=== PATIENT | male | born 1955 | race Caucasian/White ===

== ENCOUNTER 2020-12-05 11:57 | Inpatient (IN) | payer SELFPAY ==
[2020-12-05] VITALS (16 sets, daily range): BP systolic 41–150; BP diastolic 14–95; PULSE 47–144; RESP 12–18; TEMP 36.1–37; O2SAT 77–98; BMI 24.3; BMI 25.6; BMI 24.8
--- NOTE | 2020-12-05 | RAD_ITS ---
STUDY: X-RAY CHEST REASON FOR EXAM: Male, 65 years old. Central Line placement TECHNIQUE: Single AP portable view of the chest. COMPARISON: Comparison is made with prior study dated 12/05/2020 at 10:19 PM. FINDINGS: A right-sided central catheter has been placed with the tip at the junction of the superior vena cava and right atrium. EKG electrodes are seen. Persistent left lower lobe infiltration and blunting of the left costophrenic angle. Mild increased markings in the right infrahilar region. There is no demonstrated pleural abnormality. Normal size heart. Normal mediastinum and rios. Normal visualized pulmonary arteries. There is atherosclerotic tortuosity of the aortic arch and descending thoracic aorta. Normal visualized thoracic spine. Normal visualized ribs, clavicles, and shoulders. There is no demonstrated abnormality of the visualized soft tissue structures of the upper abdomen. RAD/Chest 1 View (Portable) IMPRESSION: The tip of the right central venous catheter is at the junction of the superior vena cava and right atrium. Electronically Signed: Dickson Cotton MD at 8:31 EDT , Service support ,
--- NOTE | 2020-12-05 12:19 | EKG12_ITS ---
Test Reason : Blood Pressure : / mmHG Vent. Rate : 048 BPM Atrial Rate : 394 BPM P-R Int : 000 ms QRS Dur : 082 ms QT Int : 466 ms P-R-T Axes : 000 -11 127 degrees QTc Int : 416 ms Sinus Vs Ectopic Atrial Bradycardia Low voltage QRS Septal infarct , age undetermined Inferior infarct , age undetermined T wave abnormality, consider lateral ischemia Abnormal ECG Confirmed by ORLANDO العلي, JANAK ([id number]), editorial specialist LETICIA KING ([id number]) on 12/06/2020 1:08:49 PM Referred By: HEIDI Confirmed By:JANAK PERRY MD
--- NOTE | 2020-12-05 12:38 | CT_ITS ---
STUDY: CT BRAIN WITHOUT CONTRAST REASON FOR EXAM: Male, 65 years old. Leg weakness RADIATION DOSAGE (If Supplied By Facility): CTDIvol = ( 44.99 ) mGy, DLP = ( 812.98 ) mGycm TECHNIQUE: Transaxial CT imaging of the brain was performed without administration of intravenous contrast material. Individualized dose optimization techniques were used for this CT. COMPARISON: No relevant priors. FINDINGS: Normal soft tissue structures. Normal calvarium. There is mild cerebral atrophy with widening of the extra-axial spaces and ventricular dilatation. There are areas of decreased attenuation within the white matter tracts of the supratentorial brain, consistent with microvascular disease changes. There are small punctate calcifications of the basal ganglia which are seen in the aging brain as a normal variant. Normal brainstem. Normal cerebellum. There is no intracranial hemorrhage. There are no findings of an acute ischemic infarction. Normal visualized paranasal sinuses. CT/Brain/Head without Contrast IMPRESSION: Chronic involutional changes of the brain. Electronically Signed: Dickson Cotton MD at 13:00 EDT , Service support ,
--- NOTE | 2020-12-05 12:42 | EX.ED.DYSGE1 ---
HPI History of Present Illness Chief Complaint: Neuro S/Sx Informant: patient and spouse/S.O. Onset/Context/Timing Onset: Today Current Severity: Moderate Maximum Severity: Moderate Narrative Narrative: Patient complains of bilateral leg numbness that started around 1020 this morning. Patient states that he was laying in bed looking at the clock. He got a unusual pain to the left posterior parietal scalp area and then felt as if both of his legs were numb and tingly. He reports some very mild low back pain that is chronic and unchanged from baseline. He denies abdominal pain. Nursing staff states that his legs did seem weak when they were try to transfer him into the bed. He initially states normally he is able to walk around without difficulty. He denies medical problems, but does admit he has not been to the doctor in several years. He later states that he does have some chronic balance problems and some hearing loss in his left ear. He does report some blind spots in his vision that is chronic and unchanged. PFSH PFSH no medical history Home Medications NK 12/05/20 [History Last Taken Unknown] Allergy/AdvReac Type Severity Reaction Status Date / Time No Known Allergies Allergy Verified 12/05/20 12:03 Social History Smoking Status: Never smoker ROS ROS ED Constitutional Constitutional ED: Denies chills or fever(s) Eyes Eyes: Denies change in vision ENT ENT ED: Denies sore throat Cardiovascular Cardiovascular: Denies chest pain Respiratory/Chest Respiratory/Chest: Denies cough or dyspnea Gastrointestinal Gastrointestinal: Denies abdominal pain, diarrhea, nausea or vomiting Genitourinary Genitourinary ED: Denies dysuria Musculoskeletal Musculoskeletal: Reports back pain Integumentary Denies rash Neurologic Neurologic: Reports paresthesias RLE and LLE and weakness; Denies headache(s) Psychiatric Psychiatric: Denies anxiety or depression Endocrine Endocrinology: Denies polydipsia or polyuria Allergic/Immunologic Allergic/Immunologic ED: Denies urticaria EXAM Physical Exam Const Vital Signs: 12/05/20 11:59 12/05/20 12:20 12/05/20 12:35 Temperature 97.7 F L Temperature Source Temporal Pulse Rate 62 Respiratory Rate 16 Blood Pressure 98/70 Blood Pressure Mean 79 Pulse Ox 98 95 Oxygen Delivery Method Nasal Cannula Room Air Oxygen Flow Rate (L/min) 4 Positive well nourished and well developed General Appearance ED: well developed HEENT Reports moist mucous membranes Eyes PERRL and EOMs intact bilaterally Neck supple Chest Wall inspection of chest normal and palpation of chest normal Resp normal respiratory effort and clear to auscultation bilaterally Cardio regular rhythm Rate: bradycardia GI normal to inspection, nondistended, normoactive bowel sounds and non-tender Palpation: soft Extremity Extremity Narrative: Patient reports decrease sensation to light touch in the lower extremities, but can feel me touching his legs when checked for pulses. Legs are cool to the touch but not mottled. He has palpable but weak distal pulses. No calf or thigh tenderness. Neuro oriented x3 Sensorium / Orientation: alert Skin no rashes or lesions noted MDM MDM MDM Narrative Medical decision making narrative: Lab work, EKG, head CT obtained. Lab Data Labs: Laboratory Results - last 24 hr 12/05/20 12/05/20 12/05/20 12:38 12:41 12:41 WBC 5.9 RBC 3.28 L Hgb 11.3 L Hct 34.1 L MCV 104.0 H MCH 34.5 H MCHC 33.1 RDW Std Deviation 52.5 H RDW Coeff of Quynh 13.7 Plt Count 216 MPV 10.6 Immature Gran % (Auto) 2.700 H Neut % (Auto) 68.1 Lymph % (Auto) 16.6 L Charlton % (Auto) 6.6 Eos % (Auto) 4.6 Baso % (Auto) 1.4 H Absolute Neuts (auto) 4.0 Absolute Lymphs (auto) 0.98 Nucleated RBC % 0 PT INR APTT Sodium 137 Potassium 3.9 Chloride 105 Carbon Dioxide 26.0 Anion Gap 6 BUN 30 H Creatinine 1.16 Estim Creat Clear Calc 67.30 Est GFR (MDRD) Af Amer 82 Est GFR (MDRD) Non-Af 68 BUN/Creatinine Ratio 25.9 H Glucose 120 H Calcium 8.8 Total Bilirubin 0.50 AST 35 ALT 24 Alkaline Phosphatase 65 Troponin I High Sens 24 Total Protein 6.4 Albumin 3.3 Globulin 3.1 Albumin/Globulin Ratio 1.1 POC Glucose 124 H 12/05/20 12:41 WBC RBC Hgb Hct MCV MCH MCHC RDW Std Deviation RDW Coeff of Quynh Plt Count MPV Immature Gran % (Auto) Neut % (Auto) Lymph % (Auto) Charlton % (Auto) Eos % (Auto) Baso % (Auto) Absolute Neuts (auto) Absolute Lymphs (auto) Nucleated RBC % PT 12.3 INR 1.0 APTT 30.4 Sodium Potassium Chloride Carbon Dioxide Anion Gap BUN Creatinine Estim Creat Clear Calc Est GFR (MDRD) Af Amer Est GFR (MDRD) Non-Af BUN/Creatinine Ratio Glucose Calcium Total Bilirubin AST ALT Alkaline Phosphatase Troponin I High Sens Total Protein Albumin Globulin Albumin/Globulin Ratio POC Glucose Radiography Chest X-Ray - ED: 1 View, Read by ED Physician and Chronic Changes Diagnostic Testing: Radiology Impression Brain CT 12/05/20 12:38 IMPRESSION: Chronic involutional changes of the brain. Electronically Signed: Dickson Cotton MD at 13:00 EDT , Service support , Chest X-Ray 12/05/20 12:50 IMPRESSION: Hyperinflation. Questionable 1.7 cm faint nodule in the right midlung. Electronically Signed: Dickson Cotton MD at 13:02 EDT , Service support , EKG Initial EKG: Attestation: I personally reviewed and interpreted this EKG as follows: Interpretation: Sinus Bradycardia (Sinus bradycardia at [address] change.) Treatment and Re-Evaluation Comments:: On review of EMS record, patient was initially hypotensive at 80/52 on their arrival. Heart rate was in the 50s. Initially his O2 sat was 88% on room air. Patient has been stable on room air throughout his ED stay. Heart rate has remained bradycardic in the 30s to 50s. He does not know if this is normal for him. Blood pressure has been stable between 100-130s systolic. On repeat evaluation patient states he continues to have weird feelings in his legs. He states when he pinches his thighs he can feel it but it does not feel normal. When I examine his legs he does have sensation over the right leg and proximal three quarters of the left leg. He has difficulty feeling sensation when I touch his ankle on the left. Patient is able to lift his legs off the bed but they are we can do fall back to the bed. At this time I do feel he will need further work-up including possible MRI of his back. I will speak with hospitalist. Discharge Plan Dx/Rx/DC Orders Clinical Impression: Paresthesias, Bilateral leg weakness Disposition Disposition: Acute Care [facility]
[2020-12-05 12:50] LABS: Bedside Glucose 124 mg/dL (70-110)
--- NOTE | 2020-12-05 12:50 | RAD_ITS ---
STUDY: X-RAY CHEST REASON FOR EXAM: Male, 65 years old. Stroke TECHNIQUE: Single AP portable view of the chest. COMPARISON: None. FINDINGS: EKG electrodes are seen. Hyperinflation. Mild elevation of the right hemidiaphragm. Questionable faint 1.7 cm nodule in the right midlung. There is no demonstrated pleural abnormality. There is borderline cardiomegaly. Normal mediastinum and rios. Normal visualized pulmonary arteries. There is atherosclerotic tortuosity of the aortic arch and descending thoracic aorta. Normal visualized thoracic spine. Normal visualized ribs, clavicles, and shoulders. There is no demonstrated abnormality of the visualized soft tissue structures of the upper abdomen. RAD/Chest 1 View (Portable) IMPRESSION: Hyperinflation. Questionable 1.7 cm faint nodule in the right midlung. Electronically Signed: Dickson Cotton MD at 13:02 EDT , Service support ,
[2020-12-05 12:53] LABS: Absolute Lymphocyte Count 0.98 X10^3/uL (0.83-4.51); Basophil# 0.08 X10^3/uL; Basophil% 1.4 % (0-1); Eosinophil# 0.27 X10^3/uL; Eosinophils% 4.6 % (0-5); Hematocrit 34.1 % (40-54); Hemoglobin 11.3 g/dL (13.0-16.5); Lymphocyte # 0.98 X10^3/ul (0.83-4.51); Lymphocyte % 16.6 % (19-41); Mean Corp Hgb Conc 33.1 g/dL (32-36); Mean Corpuscular Hgb 34.5 pg (27.0-32.0); Mean Platelet Vol. 10.6 fl (6.2-12.0); Monocyte# 0.39 X10^3/uL; Monocyte% 6.6 % (0-10); NRBC Flagged by Analyzer 0 % (0-5); Neutrophil # 4.03 X10^3/uL (2.7-7.7); Neutrophil % 68.1 % (47-70); Platelet Count 216 K/mm3 (150-450); RBC Distribution Width CV 13.7 % (11.6-14.6); RBC Distribution Width SD 52.5 fl (35.1-43.9); Red Blood Count 3.28 M/mm3 (4.6-6.2); White Blood Count 5.9 K/mm3 (4.4-11.0)
[2020-12-05 13:03] LABS: Partial Thromboplast Time 30.4 Seconds (24.1-36.2); Prothrombin Time (Protime)PT. 12.3 SECONDS (11.7-14.9)
[2020-12-05 13:17] LABS: ALB/GLOB Ratio 1.1 RATIO (0.9-2.4); AST(SGOT) 35 U/L (15-37); Alanine Aminotransfer ALT/SGPT 24 U/L (16-61); Albumin, Serum 3.3 g/dL (3.2-5.0); Alkaline Phosphatase 65 U/L (45-117); Anion Gap 6 (5-15); BUN 30 mg/dL (7-18); BUN/Creat Ratio 25.9 RATIO (10-20); Calcium,Total 8.8 mg/dL (8.5-10.1); Chloride 105 mmol/L (98-107); Creatinine, Serum 1.16 mg/dL (0.70-1.30); EST Glomerular Filtration Rate 68 mL/min (>60); Est Glom Filt Rate - Afr Amer 82 mL/min (>60); Globulin 3.1 g/dL (2.2-4.2); Glucose 120 mg/dL (74-106); Potassium 3.9 mmol/L (3.5-5.1); Protein, Total 6.4 g/dL (6.4-8.2); Sodium Level 137 mmol/L (136-145); Troponin-I HS 24 pg/mL (3.0-78.0)
[2020-12-05] MEDS: fentaNYL 100 MCG/2 ML Ampul 25 MCG IV (14:50)
[2020-12-05] MEDS: 0.9% Normal Saline 1,000 ML 50 ML IV (14:54)
--- NOTE | 2020-12-05 18:09 | MRI_ITS ---
STUDY: MRI LUMBAR SPINE WITH AND WITHOUT CONTRAST REASON FOR EXAM: Male, 65 years old. biLateral lower extremity weakness TECHNIQUE: Standardized fat and water weighted pulse sequences were obtained in the sagittal and axial planes. dotarem 15ml iv was administered for the contrast portion of the examination. COMPARISON: None FINDINGS: Lumbar lordosis maintained. No significant scoliosis. Conus medullaris terminates normally at the L1 level. No acute fracture, dislocation or cortical destruction. No abnormal/unexpected contrast enhancement. Normal retroperitoneum. Normal aorta. Normal paraspinal muscles. Sacrum intact. T11-12: Disc bulge with left femoral extension (sagittal image 5 series 3). Left neural foraminal narrowing with contact of the left exiting nerve root. T12-L1: Normal endplates. Normal disc height, hydration and morphology. Normal bilateral facet joints. Normal central canal and bilateral lateral recesses. Normal bilateral intervertebral neural foramina. L1-2: Normal endplates. Mild disc desiccation. Normal bilateral facet joints. Normal central canal and bilateral lateral recesses. Normal bilateral intervertebral neural foramina. L2-3: Normal endplates. Disc bulge, slightly asymmetric to the left, without central canal narrowing. Facet joint arthrosis. Normal central canal and bilateral lateral recesses. Mild left neural foraminal narrowing without impingement. L3-4: Normal endplates. Shallow disc bulge. Facet joint arthrosis. Normal central canal and bilateral lateral recesses. Neural foraminal narrowing without impingement. L4-5: Normal endplates. Disc bulge, annular fissure, without central canal narrowing. Facet joint arthrosis. Normal central canal and bilateral lateral recesses. Neural foraminal narrowing without impingement. L5-S1: Mild endplate spondylosis. Shallow disc bulge with mild left extraforaminal extension. Facet joint arthrosis. Normal central canal and bilateral lateral recesses. Neural foraminal narrowing with minimal contact of the left exiting nerve root. 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
--- NOTE | 2020-12-05 18:09 | MRI_ITS ---
STUDY: MRI BRAIN WITH AND WITHOUT CONTRAST REASON FOR EXAM: Male, 65 years old. Bilateral lower extremity weakness and numbness TECHNIQUE: Standardized multiplanar fat and water weighted pulse sequences were obtained. IV DOTAREM 15ML was administered for the contrast portion of the examination. COMPARISON: CT of the brain 12/05/2020 FINDINGS: Mild atrophy and periventricular white matter ischemic change without mass effect or restricted diffusion. Normal bilateral basal ganglia. Normal thalami. There is no extra-axial fluid accumulation. Normal flow voids within the major intracranial circulation suggesting patency by spin echo criteria. Normal venous enhancement. There is no enhancing intra-axial or extra-axial abnormality. Normal sella turcica, pituitary gland, infundibular stalk, optic chiasm and hypothalamus. Normal tectal plate and pineal gland. Normal midbrain, ben and medulla. Normal cerebellum. Normal basal cisterns. Normal bilateral temporal bones. Normal bilateral internal auditory canals. Diffusely increased signal within the mastoid air cells consistent with inflammatory changes. No demonstrated orbital abnormality, within the constraints of a routine brain study. Normal visualized paranasal sinuses. Normal calvarium and skull base. Normal visualized soft tissue structures. Normal visualized upper cervical spine. MRI/Brain W/WO Contrast IMPRESSION: Mild atrophy and periventricular white matter ischemic change without evidence for acute infarct. No enhancing lesions following contrast administration Electronically Signed: Brendan Luna MD at 22:30 EDT , Service support ,
[2020-12-05] MEDS: HYDROmorphone 1 MG/ML Syringe IV (18:33)
[2020-12-05] MEDS: 0.9% Saline Lock 10 ML Syringe IV (18:33)
--- NOTE | 2020-12-05 20:21 | PCM.HP.STD ---
HPI - General General Date of Admission: 12/05/20 HPI Narrative DARYA BALTAZAR, is a 65 M who presents sudden onset of headache and then bilateral lower extremity weakness and numbness/tingling. Denies any weakness in his upper extremities. Denies any dysarthria, dysphagia, dysphagia, diplopia, neck stiffness, back pain, bladder or bowel incontinence. Denies any fever or chills. Head CT done was negative. Left lower extremity is worse and patient is having sciatic-like pain in that lower extremity as well. [facility] Home Medications NK 12/05/20 [History Last Taken Unknown] Allergy/AdvReac Type Severity Reaction Status Date / Time No Known Allergies Allergy Verified 12/05/20 12:03 Social History Smoking Status: Never smoker ROS ROS Narrative Denies any chest pain or shortness of breath. All other systems reviewed and essentially negative. Vital Signs Vital Signs Vital Signs: 12/05/20 11:59 12/05/20 12:20 12/05/20 12:35 Temperature 36.5 C L Temperature Source Temporal Pulse Rate 62 Respiratory Rate 16 Blood Pressure 98/70 Blood Pressure Mean 79 Blood Pressure Source Blood Pressure Position Blood Pressure Location Pulse Ox 98 95 Oxygen Delivery Method Nasal Cannula Room Air Oxygen Flow Rate (L/min) 4 12/05/20 13:30 12/05/20 14:00 12/05/20 14:30 Temperature Temperature Source Pulse Rate 47 L 48 L 50 L Respiratory Rate 13 13 17 Blood Pressure 107/72 100/62 110/80 Blood Pressure Mean 83 74 90 Blood Pressure Source Blood Pressure Position Blood Pressure Location Pulse Ox 95 95 96 Oxygen Delivery Method Room Air Room Air Room Air Oxygen Flow Rate (L/min) 12/05/20 15:00 12/05/20 15:55 12/05/20 16:46 Temperature 37.0 C 36.7 C Temperature Source Temporal Oral Pulse Rate 50 L 61 58 L Respiratory Rate 17 18 12 Blood Pressure 112/75 124/84 H 132/95 H Blood Pressure Mean 87 97 107 Blood Pressure Source Monitor Blood Pressure Position Semi-Fowlers Blood Pressure Location Right Arm Pulse Ox 97 94 96 Oxygen Delivery Method Room Air Room Air Room Air Oxygen Flow Rate (L/min) Weight Weight: 78.6 kg Body Mass Index (BMI) 24.8 Physical Exam Narrative General. Middle-aged man, ill looking, chronically ill-appearing, Skin. Patient appears yellow. HEENT. Edentulous, oral mucosa moist, swelling of lips and lower eyelids. Neck. Supple. Heart. First and second heart sounds heard. No murmurs. Lungs. Clear to auscultation. Abdomen. Obese. Moves with respiration. No organomegaly or palpable masses. Extremities. Mild polypitting edema in both lower extremities. 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 Gross sensation is diminished in both lower extremities and appears to be patchy. Results Lab / Micro Data Result Diagrams: 12/05/20 12:41 12/05/20 12:41 Labs: Laboratory Results - last 24 hr 12/05/20 12:38: POC Glucose 124 H 12/05/20 12:41: WBC 5.9, RBC 3.28 L, Hgb 11.3 L, Hct 34.1 L, MCV 104.0 H, MCH 34.5 H, MCHC 33.1, RDW Std Deviation 52.5 H, RDW Coeff of Quynh 13.7, Plt Count 216, MPV 10.6, Immature Gran % (Auto) 2.700 H, Neut % (Auto) 68.1, Lymph % (Auto) 16.6 L, [place] % (Auto) 6.6, Eos % (Auto) 4.6, Baso % (Auto) 1.4 H, Absolute Neuts (auto) 4.0, Absolute Lymphs (auto) 0.98, Nucleated RBC % 0 12/05/20 12:41: Sodium 137, Potassium 3.9, Chloride 105, Carbon Dioxide 26.0, Anion Gap 6, BUN 30 H, Creatinine 1.16, Estim Creat Clear Calc 67.30, Est GFR (MDRD) Af Amer 82, Est GFR (MDRD) Non-Af 68, BUN/Creatinine Ratio 25.9 H, Glucose 120 H, Calcium 8.8, Total Bilirubin 0.50, AST 35, ALT 24, Alkaline Phosphatase 65, Troponin I High Sens 24, Total Protein 6.4, Albumin 3.3, Globulin 3.1, Albumin/Globulin Ratio 1.1 12/05/20 12:41: PT 12.3, INR 1.0, APTT 30.4 12/05/20 12:41: TSH 98.30 H Radiology Impression Brain CT 12/05/20 12:38 IMPRESSION: Chronic involutional changes of the brain. Electronically Signed: Dickson Cotton MD at 13:00 EDT , Service support , Chest X-Ray 12/05/20 12:50 IMPRESSION: Hyperinflation. Questionable 1.7 cm faint nodule in the right midlung. Electronically Signed: Dickson Cotton MD at 13:02 EDT , Service support , Assessment & Plan Assessment/Plan (1) Paraparesis: PLAN: With bilateral lower extremity weakness, paresthesias, sensory loss and pain in the left lower extremity. Will need to rule out an acute process in the sagittal area of the brain such as a sagittal venous thrombosis. We will also need to rule out lumbar myeloradiculopathy. We will do MRI of the brain and lumbar spine. Check vitamin B12 levels as well. Check TSH. Physical and Occupational Therapy. (2) Yellow skin: PLAN: Without any scleral icterus. This would be suggestive of xanthoderma. Differentials include beta-carotenemia or hypothyroidism. Check TSH. Will check blood carotene levels if able. Will obtain more detailed dietary history. Charges/Coding Visit Charges Inpatient E&M: 04904 Init Hosp L3
--- NOTE | 2020-12-05 21:58 | PCM.CODE.SUM ---
Code Blue Report Code Blue Summary Code Blue Summary: Nurse noted that patient was bradycardia on monitor. Nurse check on patient patient was unresponsive. Patient had no pulse. ACLS with chest compression was started. Patient received epinephrine. ROSC was achieved. Also it was noted that patient was sinus bradycardia on monitor. Patient was given atropine. Patient was intubated at the bedside by [employer]. Because of hypotension patient was given normal saline bolus. Patient was transferred to intensive care unit.
--- NOTE | 2020-12-05 22:19 | RAD_ITS ---
STUDY: X-RAY CHEST REASON FOR EXAM: Male, 65 years old. ET tube placement TECHNIQUE: Single AP portable view of the chest. COMPARISON: Comparison is made with prior study dated 12/05/2020. FINDINGS: An endotracheal tube has been placed. The tip is at 4.9 cm proximal to the karlie. EKG electrodes are seen. Patchy left lower lobe infiltrate. Blunting of the left costophrenic angle. There is mild cardiac enlargement. Normal mediastinum and rios. Normal visualized pulmonary arteries. There is atherosclerotic tortuosity of the aortic arch and descending thoracic aorta. Normal visualized thoracic spine. Normal visualized ribs, clavicles, and shoulders. There is no demonstrated abnormality of the visualized soft tissue structures of the upper abdomen. RAD/Chest 1 View (Portable) IMPRESSION: The tip of the endotracheal tube is at 4.9 sinus proximal to the karlie. Patchy left lower lobe infiltrate with blunting of the left costophrenic angle. Electronically Signed: Dickson Cotton MD at 8:26 EDT , Service support ,
[2020-12-05 22:35] LABS: Hematocrit 25.9 % (40-54); Hemoglobin 8.1 g/dL (13.0-16.5); Mean Corp Hgb Conc 31.3 g/dL (32-36); Mean Corpuscular Hgb 34.9 pg (27.0-32.0); Mean Corpuscular Volume 111.6 fL (80-94); Mean Platelet Vol. 10.7 fl (6.2-12.0); POSITIVE COUNT YES; POSITIVE MORPHOLOGY YES; Platelet Count 143 K/mm3 (150-450); RBC Distribution Width CV 13.8 % (11.6-14.6); RBC Distribution Width SD 56.1 fl (35.1-43.9); Red Blood Count 2.32 M/mm3 (4.6-6.2)
[2020-12-05 22:38] LABS: Differential Indicated MANUAL DIFF
[2020-12-05] MEDS: 0.9% Normal Saline 1,000 ML 500 ML IV (22:50)
[2020-12-05 22:51] LABS: Anion Gap 9 (5-15); BUN 26 mg/dL (7-18); BUN/Creat Ratio 21.3 RATIO (10-20); Calcium,Total 7.4 mg/dL (8.5-10.1); Chloride 105 mmol/L (98-107); Creatinine, Serum 1.22 mg/dL (0.70-1.30); EST Glomerular Filtration Rate 64 mL/min (>60); Est Glom Filt Rate - Afr Amer 77 mL/min (>60); Estimated Creatinine Clearance 63.99 ml/min; Glucose 291 mg/dL (74-106); Potassium 3.8 mmol/L (3.5-5.1); Sodium Level 137 mmol/L (136-145)
[2020-12-05 23:08] LABS: Lymphocyte 11 % (19-41); Neutrophil-Band 1 % (0-5); Neutrophil-Segmented 88 % (47-70); Total Cells Counted 100 (MANUAL DIFF)
[2020-12-05 23:10] LABS: Absolute Lymphocyte Count 0.66 X10^3/uL (0.83-4.51); Absolute Neutrophil Count 5.4 X10^3/uL (2.0-7.7)
[2020-12-05 23:11] LABS: Anisocytosis 1+; Macrocytosis 1+; Platelet Estimate ADEQUATE (ADEQ); Red Cell Morphology N CHROM NORMAL (NORM C&C)
[2020-12-05 23:25] LABS: Troponin-I HS 17 pg/mL (3.0-78.0)
--- NOTE | 2020-12-05 23:44 | CM.ED ---
TONY Note TONY Referral Source: Leigh JIMENEZ referral Source: Leigh Harris SW responded to Leigh Harris. No family present. However, this wirter called patient's sister, Tressa and provided update. SW attempted to provide support but sister said that she had to get off phone to speak to siblings. SW agreed to call back as patient sounded very distraught. sW called PCU for update on patient. He was transferred to ICU. SW called patient's sister, Tressa back. Tressa said that she is int he ICU waiting room waiting. SW advised that this copywriter will update staff. TONY called workers compensation claims examiner. charge authorizer said that they are aware of patient's sister being in the ICU waiting room but patient is not stable enough for visitors. TONY asked if workers compensation claims examiner had any needs for this copywriter and she said no. Plan: Emotional support provided Susy BETANCOURT
[2020-12-06] VITALS (9 sets, daily range): BP systolic 53–126; BP diastolic 27–108; PULSE 113–115; RESP 29
[2020-12-06] MEDS: Lactated Ringers 1,000 ML 999 ML IV
--- NOTE | 2020-12-06 00:05 | CON.PCM.CC_ITS ---
Assessment & Plan Assessment/Plan (1) Cardiac arrest: PLAN: RECOMMENDATIONS: 1. Initiate vasopressin and stress dose steroids in addition to Levophed 2. Continue mechanical ventilation 3. Aggressive fluid resuscitation 4. Trend troponins 5. Administer Synthroid 6. Possible CTA of the chest if hemodynamics improve IMPRESSIONS: 1. Cardiac arrest Unclear etiology. Patient may have had a pulmonary embolism given respiratory hypoxia. However, patient does appear pale and has a 3 g drop in hemoglobin. Acute GI bleed is a possibility. Patient will have pressors initiated. Will initiate stress dose steroids. Possible CTA of the chest if patient can be stabilized from a hemodynamic standpoint. 2. Possible malignant hypothyroidism Patient with significantly elevated TSH. Unclear if this represents euthyroid sick syndrome. Patient is not hypothermic. Will dose patient with Synthroid. 3. Hypoxic respiratory failure Unclear baseline. Patient does have an increased AA gradient noted on the ventilator. ABG will be ordered. 4. Poor primary care/debility/lower extremity weakness Complicates care, management, recovery and prognosis. Very little data is available for review of baseline function. CT of the head and MRI are unremark able. Patient did appear to have some carotid thickening during central line placement. TIME: 35 minutes of critical care time, excluding procedure, was spent addressing patient's cardiac arrest, hypotension, review of all data and collaboration with care team (11 PM to 11:59 PM) HPI Consult Data Date of Consult: 12/06/20 HPI Narrative HPI Narrative: DARYA BALTAZAR is a 65 M, with past medical history listed below, who presents to [facility] on 12/05/2020 secondary to acute onset of bilateral leg numbness started about 1020 this morning. Patient reportedly had an unusual pain in his posterior parietal scalp area and suddenly got tingling in his legs. Patient does have chronic back pain, but states this is unchanged from baseline. Patient denies any abdominal pain. Nursing had repo rted of poor gait. Patient reportedly had not seen a doctor in several years, reports some hearing loss in his left ear and some blind spots in his vision that are unchanged. In the ER, patient was afebrile and noted to be 95% on room air. Blood pressures were marginal and 98/70 and patient was not tachycardic. Laboratory work-up was relatively unremarkable except for hemoglobin of 11.3 and a slightly elevated glucose of 124. Chemistry and liver functions were within normal limits. Coagulation studies were within normal limits. A CT of the head was done showing only chronic involutional changes and chest x-ray showed hyperinflation with a questionable 1.7 faint nodule in the right middle lung. Patient was admitted to the floor for possible spinal cord work-up. At approximately 11 PM, a YODIT VILLANUEVA was called on PCU. I arrived approximately 2 minutes after the initial alert. Patient had agonal breathing and was pulseless. Patient had CPR initiated. Patient did receive epinephrine and had ROSC with bradycardia. Patient was then given additional dose of atropine. Patient was intubated by myself with direct laryngoscopy using a MAC 4 blade. Patient did receive succinylcholine and etomidate to facilitate procedure. Positive color change and bilateral breath sounds were noted. Patient was transferred to the intensive care unit. Since being in the intensive care unit, patient has remained hypotensive and unresponsive. Patient is not currently on any sedation and does not respond to painful stimuli. Patient was started on peripheral Levophed pending arrival of his sister. Initial discussions with his sister were not helpful. Another sibling was contacted and she stated that she wanted everything done. Given continued hypotension, a central line was placed emergently with little difficulty. [facility] Home Medications NK 12/05/20 [History Last Taken Unknown] Allergy/AdvReac Type Severity Reaction Status Date / Time No Known Allergies Allergy Verified 12/05/20 12:03 Social History Smoking Status: Never smoker ROS Review of Systems ROS Unobtainable: due to encephalopathy Physical Exam Const Constitutional Narrative: Appears older than stated age. Orientation / Consciousness: obtunded Exam Limitations: altered mental status HEENT normocephalic and head/scalp atraumatic Eyes PERRL, EOMs intact bilaterally and no scleral icterus Neck full ROM and No nuchal rigidity Chest inspection of chest normal Chest: symmetrical chest wall rise; Negative for crepitus Resp Auscultation: diminished lung sounds; Negative for rales, rhonchi or wheezes Cardio regular rhythm Rate: tachycardic Rhythm: abnormal rhythm Heart Sounds: Negative for gallop, murmur or rub GI normal to inspection, nondistended, normoactive bowel sounds Extremity normal to inspection General Extremity: edema; Negative for clubbing or cyanosis Peripheral Pulses: Negative for pulses 2+ throughout Skin Skin Narrative: Pale appearance. Mottling noted of the lower extremities up through the umbilicus. Neuro Sensorium / Orientation: obtunded Psych Psych Narrative: Intubated and unresponsive Lab / Micro Data Result Diagrams: 12/05/20 22:20 12/05/20 22:20 Labs: Laboratory Results - last 24 hr 12/05/20 12:38: POC Glucose 124 H 12/05/20 12:41: WBC 5.9, RBC 3.28 L, Hgb 11.3 L, Hct 34.1 L, MCV 104.0 H, MCH 34.5 H, MCHC 33.1, RDW Std Deviation 52.5 H, RDW Coeff of Quynh 13.7, Plt Count 216, MPV 10.6, Immature Gran % (Auto) 2.700 H, Neut % (Auto) 68.1, Lymph % (Auto) 16.6 L, [place] % (Auto) 6.6, Eos % (Auto) 4.6, Baso % (Auto) 1.4 H, Absolute Neuts (auto) 4.0, Absolute Lymphs (auto) 0.98, Nucleated RBC % 0 12/05/20 12:41: Sodium 137, Potassium 3.9, Chloride 105, Carbon Dioxide 26.0, Anion Gap 6, BUN 30 H, Creatinine 1.16, Estim Creat Clear Calc 67.30, Est GFR (MDRD) Af Amer 82, Est GFR (MDRD) Non-Af 68, BUN/Creatinine Ratio 25.9 H, Glucose 120 H, Calcium 8.8, Total Bilirubin 0.50, AST 35, ALT 24, Alkaline Phosphatase 65, Troponin I High Sens 24, Total Protein 6.4, Albumin 3.3, Globulin 3.1, Albumin/Globulin Ratio 1.1 12/05/20 12:41: PT 12.3, INR 1.0, APTT 30.4 12/05/20 12:41: TSH 98.30 H 12/05/20 22:20: WBC 6.0, RBC 2.32 L, Hgb 8.1 L, Hct 25.9 L, MCV 111.6 H D, MCH 34.9 H, MCHC 31.3 L D, RDW Std Deviation 56.1 H, RDW Coeff of Quynh 13.8, Plt Co unt 143 L, MPV 10.7, Neut % (Auto) Not Reportable, Absolute Neuts (auto) 5.4, Absolute Lymphs (auto) 0.66 L, Total Counted 100, Neutrophils % (Manual) 88 H, Band Neutrophils % 1, Lymphocytes % (Manual) 11 L, Diff Path Review July, Platelet Estimate ADEQUATE, RBC Morphology N CHROM, Anisocytosis 1+, Macrocytosis 1+ 12/05/20 22:20: Sodium 137, Potassium 3.8, Chloride 105, Carbon Dioxide 23.0, Anion Gap 9, BUN 26 H, Creatinine 1.22, Estim Creat Clear Calc 63.99, Est GFR (MDRD) Af Amer 77, Est GFR (MDRD) Non-Af 64, BUN/Creatinine Ratio 21.3 H, Glucose 291 H, Calcium 7.4 L 12/05/20 22:20: Troponin I High Sens [address] 12/05/20 12:38 IMPRESSION: Chronic involutional changes of the brain. Electronically Signed: Dickson Cotton MD at 13:00 EDT , Service support , Chest X-Ray 12/05/20 12:50 IMPRESSION: Hyperinflation. Questionable 1.7 cm faint nodule in the right midlung. Electronically Signed: Dickson Cotton MD at 13:02 EDT , Service support , Brain MRI 12/05/20 18:09 IMPRESSION: Mild atrophy and periventricular white matter ischemic change without evidence for acute infarct. No enhancing lesions following contrast administration Electronically Signed: Brendan Luna MD at 22:30 EDT , Service support , Central Venous Catheter Indication: Hypotension Consent was obtained from: Sister A time-out was completed verifying correct patient, procedure, site, positioning, and special equipment if applicable. The patient was placed in a dependent position appropriate for central line placement based on the vein to be cannulated. The patient's right neck was prepped and draped in a sterile fashion. 1% lidocaine was used to anesthetize the surrounding skin area. A triple-lumen catheter was introduced into the right IJ using the Seldinger technique and under ultrasound guidance. The catheter was threaded smoothly over the guidewire and appropriate blood return was obtained. Each lumen of the catheter was evacuated of air and flushed with sterile saline. The catheter was then sutured in place to the skin and a sterile dressing applied. Chest x-ray to confirm appropriate positioning is pending. ULTRASOUND GUIDANCE STATEMENT (Vascular Access): I performed ultrasound image acquisition and interpretation for needle placement during the procedure. The vessel was identified and found to be free of thrombosis by compression technique. A safe point of entry was marked at the skin in an angle for axis was determined. The needle was guided by obtaining free-flowing fluid and by real-time visualization. Charges/Coding Procedures Hospitalists Procedures: 89179 Critial Care 1st Hr Multi Select Codes Hospitalists' Procedures Procedures: 47972 Insert Non-tunnel CV Cath
[2020-12-06 00:20] LABS: Base Excess -23 mmol/L (-2 to +2); Bicarbonate 7.4 mmol/L (22-26); Blood Gas Specimen Type ART; FI02 100; Mode AC; O2 Delivery Device Adult Vent; PEEP 5; PO2 163 mmHG (75-100); RR 14; SITE R Radial; SO2 99 % (95-99); Total Carbon Dioxide 8 mmol/L; Vt 450; pCO2 25.6 mmHg (35-45); pH 7.07 (7.35-7.45)
--- NOTE | 2020-12-06 00:45 | NURSING ---
Dr. Benton at bedside attempting to place Arterial line. Attempts unsuccessful.
--- NOTE | 2020-12-06 01:09 | PCM.PN.BLA ---
Progress Note Attempted putting an A-line without success.
[2020-12-06] MEDS: 0.9% Normal Saline 1,000 ML 100 ML IV (01:12)
--- NOTE | 2020-12-06 01:16 | NURSING ---
Boni, RT at bedside now to attempt arterial line placement.
[2020-12-06] MEDS: Hydrocortisone Sod Succinate 100 MG/2 ML Vial IV (01:18)
[2020-12-06] MEDS: Sodium Bicarbonate 8.4% 50 ML Syringe 50 MEQ IV (01:27)
[2020-12-06] MEDS: LEVOTHYROXINE SODIUM 200 MCG VIAL 100 MCG IV (01:31)
--- NOTE | 2020-12-06 02:56 | PCM.DEATH ---
Preliminary Cause of Preliminary Cause of Preliminary Cause of : Asystole Principle Diagnosis Problem List: Active and Suspected Problems (Updated 12/06/20 @ 00:[address] Lexa Fontaine MD) Cardiac arrest (Acute) Yellow skin (Acute) Paraparesis (Acute) Paresthesias (Acute) Bilateral leg weakness (Acute) Hospital Course hpi: DARYA BALTAZAR, is a 65 M who presents sudden onset of headache and then bilateral lower extremity weakness and numbness/tingling. Denies any weakness in his upper extremities. Denies any dysarthria, dysphagia, dysphagia, diplopia, neck stiffness, back pain, bladder or bowel incontinence. Denies any fever or chills. Head CT done was negative. Left lower extremity is worse and patient is having sciatic-like pain in that lower extremity as well. Hospital course: A CT brain and MRI brain was done all did not show any acute pathology. TSH was elevated. Patient had cardiac arrest. He was successfully resuscitated intubated and sent to intensive care unit. While at the intensive care unit he had around cardiac arrest. ACLS protocol was initiated. ROSC could not be achieved. Date of . 12/06/2020. Time of : 0 235 Immediate cause of (final disease of condition resulting in ): Asystole. Duration: Days/month/years: Hours Listed conditions leading to cause of (due to or as a consequence of) : Atherosclerotic heart disease Day/month/years: Years Listed other significant conditions contributing to but not resulting in the underlying cause of : Thyroid disease. Did tobacco contribute to : Unknown Visit Charges Inpatient E&M: 73732 Disch Hosp
[2020-12-06 14:44] LABS: Pathologist Review Reviewed
== END 2020-12-05 22:35 | DRG 555 ==
LOC: ED 14:40 → PCU 21:00 → ICU 22:09
PROVIDERS: Hospitalist; Admitting Provider Internal Medicine; Emergency Provider Emergency Medicine; Visit Provider Internal Medicine
DX: M62.81 Muscle weakness (generalized) (principal); J96.91 Respiratory failure, unspecified with hypoxia; I25.10 Atherosclerotic heart disease of native coronary artery without angina pectoris; I46.2 Cardiac arrest due to underlying cardiac condition; E03.8 Other specified hypothyroidism; H91.92 Unspecified hearing loss, left ear; R20.2 Paresthesia of skin; I95.9 Hypotension, unspecified; R51.9 Headache, unspecified
CPT/HCPCS: 31500; 36600; 70450; 70553; 71045; 72158; 80048; 80053; 82803; 82962; 84443; 84484; 85025; 85610; 85730; 92950; 93005; 94002; 94003; 99285; A9575; J7030; J7050; J7120; A4216; C1751; J3475; J3490